=== PATIENT | female | born 1965 | race Caucasian/White ===

== ENCOUNTER 2021-11-17 10:36 | Outpatient (CLI) | payer OTHER ==
[2021-11-17] MEDS ORDERED: Iopamidol-370 76% 500 ML 1 ML ONE (14:32)
== END 2021-11-17 10:37 | disposition home or self-care (01) ==
LOC: BICCT 10:36
DX: C56.9 Malignant neoplasm of unspecified ovary (principal); R10.9 Unspecified abdominal pain
CPT/HCPCS: 74177; Q9967

== ENCOUNTER 2023-05-19 06:39 | Day surgery (SDC) | payer OTHER ==
[2023-05-17 12:22] VITALS: BMI 18.3
[~2023-05-19 06:39] MED LIST: EPINEPHrine 0.3 MG in Ophthalmic Irrigation Solution 500 ML IRR SCH
[2023-05-19] MEDS ORDERED: Cyclopentolate 1% Opth Drop 2 ML BOT ONE (07:22)
[2023-05-19] MEDS ORDERED: PHENYLephrine 2.5% Ophth Soln 15 ml Bottle ONE (07:22)
[2023-05-19] MEDS ORDERED: fentaNYL PF 100 MCG/2 ML SYRINGE ONE (07:43)
[2023-05-19] MEDS ORDERED: Indocyanine Green 25 MG/10 ML VIAL ONE (07:53)
[2023-05-19] MEDS ORDERED: PROPOFOL 200 MG/20 ML VIAL ONE (07:53)
[2023-05-19] MEDS ORDERED: Maxitrol 0.1% Opth Oint 3.5 GM TUBE ONE (07:53)
[2023-05-19] MEDS ORDERED: Lidocaine 1% PF 5 ML VIAL ONE (07:53)
[2023-05-19] MEDS ORDERED: Triamcinolone 40 MG/ML VIAL ONE (07:53)
[2023-05-19] MEDS ORDERED: Naloxone HCl 0.4 mg/ml Vial ONE (07:53)
[2023-05-19] MEDS ORDERED: TISSUEBLUE 0.5 ML SYRINGE IO ONE (07:53)
[2023-05-19] MEDS ORDERED: CEFAZOLIN 1 GM VIAL ONE (07:53)
[2023-05-19] MEDS ORDERED: Lidocaine 4% PF 5 ML AMP ONE (07:53)
[2023-05-19] MEDS ORDERED: Bupivacaine 0.75% 10 ML VIAL ONE (07:53)
[2023-05-19] MEDS ORDERED: Lidocaine 1% MPF 2 ML VIAL ONE (08:31)
[2023-05-19] MEDS ORDERED: Midazolam HCl 2 mg/2 ml Vial ONE (08:54)
== END 2023-05-19 10:25 | disposition home or self-care (01) ==
LOC: SDC 06:39
PROVIDERS: ATTEND Ophthalmology Retina Specialist
PROC: 08T53ZZ Resection of Left Vitreous, Percutaneous Approach (ICD-10-PCS; principal; 2023-05-19)
PROC: 08NF3ZZ Release Left Retina, Percutaneous Approach (ICD-10-PCS; principal; 2023-05-19)
DX: H35.342 Macular cyst, hole, or pseudohole, left eye (principal); Z88.0 Allergy status to penicillin
CPT/HCPCS: 67025; J0171; J0690; J2250; J2310; J2704; J3301; J3490